=== PATIENT | male | born 1990 | race American Indian/Alaskan Native ===

== ENCOUNTER 2018-02-26 10:59 | Emergency (ER) | payer SELFPAY ==
[2018-02-26 11:15] VITALS: BP 111/71
[2018-02-26] MEDS ORDERED: BENTYL IM ONE (11:42)
[2018-02-26] MEDS ORDERED: ZOFRAN ODT PO ONE (11:42)
[2018-02-26] MEDS ORDERED: TORADOL IM ONE (11:42)
--- NOTE | 2018-02-26 11:53 | Emergency Department Report ---
ED General Adult HPI - General Chief complaint: Abdominal Pain Stated complaint: ABDOMINAL PAIN Time Seen by Provider: 02/26/18 11:40 Source: EMS Mode of arrival: Wheelchair Limitations: No Limitations - History of Present Illness Initial comments: Patient is a 27-year-old -[place] male who has had 2 days of nausea vomiting diarrhea. Patient states that this been present since just last night and through this morning. Patient denies any fever. Patient does state he has some generalized crampy abdominal pain mostly before having the loose stools. Patient denies any fever cough cold congestion at this time. - Related Data Previous Rx's Medication Instructions Recorded Last Taken Type Dicyclomine [Bentyl] 10 mg PO QID #15 capsule 02/26/18 Unknown Rx Diphenoxylate/Atropine [Lomotil] 1 tab PO Q4H PRN #10 tablet 02/26/18 Unknown Rx Ondansetron [Zofran Odt] 4 mg PO Q8HR PRN #10 tab.rapdis 02/26/18 Unknown Rx traMADol [Ultram] 50 mg PO Q6HR PRN #10 tablet 02/26/18 Unknown Rx Allergies Allergy/AdvReac Type Severity Reaction Status Date / Time No Known Allergies Allergy Unverified 02/26/18 11:15 ED Review of Systems ROS: Stated complaint: ABDOMINAL PAIN Other details as noted in HPI Comment: All other systems reviewed and negative ED Past Medical Hx - Past Medical History Hx HIV: Yes (DX 01/15/2018-not on meds) Additional medical history: scoliosis - Surgical History Past Surgical History?: No - Social History Smoking Status: Never Smoker Substance Use Type: Alcohol, Marijuana - Medications Home Medications: Home Medications Medication Instructions Recorded Confirmed Last Taken Type Dicyclomine [Bentyl] 10 mg PO QID #15 capsule 02/26/18 Unknown Rx Diphenoxylate/Atropine [Lomotil] 1 tab PO Q4H PRN #10 tablet 02/26/18 Unknown Rx Ondansetron [Zofran Odt] 4 mg PO Q8HR PRN #10 tab.rapdis 02/26/18 Unknown Rx traMADol [Ultram] 50 mg PO Q6HR PRN #10 tablet 02/26/18 Unknown Rx ED Physical Exam - General Limitations: No Limitations General appearance: alert, in no apparent distress - Head Head exam: Present: atraumatic, normocephalic - Eye Eye exam: Present: normal appearance - ENT ENT exam: Present: mucous membranes moist - Neck Neck exam: Present: normal inspection - Respiratory Respiratory exam: Present: normal lung sounds bilaterally. Absent: respiratory distress, wheezes, rales - Cardiovascular Cardiovascular Exam: Present: regular rate, normal rhythm. Absent: systolic murmur, diastolic murmur, rubs, gallop - GI/Abdominal GI/Abdominal exam: Present: soft, normal bowel sounds. Absent: distended, tenderness, guarding - Rectal Rectal exam: Present: deferred - Extremities Exam Extremities exam: Present: normal inspection - Back Exam Back exam: Present: normal inspection - Neurological Exam Neurological exam: Present: alert, oriented X3 - Psychiatric Psychiatric exam: Present: normal affect, normal mood - Skin Skin exam: Present: warm, dry, intact, normal color. Absent: rash ED Course Vital Signs 02/26/18 11:10 Temperature 98.2 F Pulse Rate 93 H Respiratory 18 Rate Blood Pressure 111/71 O2 Sat by Pulse 97 Oximetry ED Medical Decision Making - Medical Decision Making Patient is a 27-year-old [place] male who's had mild vomiting diarrhea since last night. Patient's vital signs are unremarkable. His abdominal tenderness is minimal. Patient likely has a viral gastroenteritis. There is no rebound tenderness present no localized right sided abdominal pain and no fever do not suspect appendicitis at this time. Patient will be given meds for symptomatic relief will be discharged home. Critical care attestation.: If time is entered above; I have spent that time in minutes in the direct care of this critically ill patient, excluding procedure time. ED Disposition Clinical Impression: Viral gastroenteritis Disposition: DC-01 TO HOME OR SELFCARE Is pt being admited?: No Does the pt Need Aspirin: No Condition: Stable Instructions: Gastroenteritis (ED) Additional Instructions: Please return to the hospital if you develop a fever or your pain localizes to the right lower quadrant Referrals: PRIMARY MD PARESH [Primary Care Provider] - 3-5 Days Time of Disposition: 11:53
== END 2018-02-26 12:12 | disposition home or self-care (01) ==
LOC: ED 10:59
DX: A08.4 Viral intestinal infection, unspecified (principal); F12.10 Cannabis abuse, uncomplicated; Z21 Asymptomatic human immunodeficiency virus [HIV] infection status
CPT/HCPCS: 96372; 99283; J0500; J1885; Q0162

== ENCOUNTER 2018-09-14 13:51 | Emergency (ER) | payer OTHER ==
--- NOTE | 2018-09-14 14:41 | Emergency Department Report ---
Chief Complaint: Chest Pain Stated Complaint: CHEST PAIN/BLOOD IN STOOL Time Seen by Provider: 09/14/18 14:37 - HPI History of Present Illness: pt presents for substernal and left sided CP that began two days ago works at a [employer], does not do any heavy lifting hx of asthma, albuterol inhaler no cough, no wheezing, no SOB no N/V HIV (+), is not on antivirals, diagnosed may 2018 has not seen anyone for it also having blood in the stool denies any hx of hemorrhoids no rectal pain (+) smoker MSE screening note: Focused history and physical exam performed. Due to findings the following was ordered: CXR, labs ED Disposition for MSE Condition: Stable
[2018-09-14 15:02] LABS: Basophils % (Auto) 0.3 % (0.0-1.8); Eosinophils # (Auto) 0.2 K/mm3 (0.0-0.4); Eosinophils % (Auto) 2.6 % (0.0-4.3); Hemoglobin 10.5 gm/dl (11.8-15.2); Lymphocytes # (Auto) 2.7 K/mm3 (1.2-5.4); Lymphocytes % (Auto) 34.7 % (13.4-35.0); Mean Corpuscular HGB Conc 33 % (32-34); Mean Corpuscular Volume 81 fl (84-94); Monocytes # (Auto) 0.7 K/mm3 (0.0-0.8); Monocytes % (Auto) 8.9 % (0.0-7.3); Platelet Count 366 K/mm3 (140-440); Red Blood Count 3.96 M/mm3 (3.65-5.03)
--- NOTE | 2018-09-14 15:57 | XRay Report ---
PROCEDURE: XR CHEST ROUTINE 2V TECHNIQUE: PA and lateral chest radiographs were obtained. HISTORY: CP COMPARISONS: None. FINDINGS: Heart: Normal. Mediastinum/Vessels: Normal. Lungs/Pleural space: No infiltrate, effusion, or pneumothorax. Bony thorax: No acute osseous abnormality. IMPRESSION: No pulmonary infiltrates. This document is electronically signed by Emperatriz Cross MD., September 14 2018 03:55:59 PM ET
--- NOTE | 2018-09-14 19:29 | Emergency Department Report ---
Minor Respiratory - HPI Chief Complaint: Chest Pain Stated Complaint: CHEST PAIN/BLOOD IN STOOL Time Seen by Provider: 09/14/18 14:37 Duration: 3 Days Pain Location: Chest Severity: mild Minor Respiratory: Yes Able to Tolerate Fluids, Yes Chest Pain, No Rhinorrhea, No Sore Throat, No Ear Pain, No Cough, No Sick Contacts, No Hemoptysis, No Shortness of Breath, No Fever Other History: She is a 28-year-old male comes to the ER complaining of left- sided chest pain since Saturday. He denies cough. He states he does have some shortness of breath with wheezing. He has no fever or sputum. Denies any night sweats. He denies any recent weight loss. Patient does have HIV and is not on antivirals. He cannot tell me a good reason why he is not. He does have a history of asthma. ED Review of Systems ROS: Stated complaint: CHEST PAIN/BLOOD IN STOOL Other details as noted in HPI Comment: All other systems reviewed and negative ED Past Medical Hx - Past Medical History Hx Asthma: Yes Hx HIV: Yes (DX 01/15/2018-not on meds) Additional medical history: scoliosis, cellulitis of right knee - Social History Smoking Status: Current Every Day Smoker Substance Use Type: Alcohol, Marijuana Minor Respiratory Exam - Exam General: Vital signs noted. No distress. Alert and acting appropriately. HEENT: Yes Moist Mucous Membranes, No Pharyngeal Erythema, No Pharyngeal Exudates, No Rhinorrhea, No Conjuctival Injection, No Frontal Tenderness, No Maxillary Tenderness Ear: Neither TM Bulge, Neither TM Erythema, Neither EAC Pain, Neither EAC Discharge Neck: Yes Supple, No Adenopathy Lungs: Yes Good Air Exchange, Yes Wheezes, No Ronchi, No Stridor Heart: Yes Regular, No Murmur Abdomen: No Tenderness, No Peritoneal Signs Skin: No Rash, No Edema Neurologic: Alert and oriented, no deficits. Musculoskeletal: Unremarkable. ED Course Vital Signs 09/14/18 14:37 Temperature 98.7 F Pulse Rate 64 Respiratory 16 Rate Blood Pressure 111/69 O2 Sat by Pulse 98 Oximetry ED Medical Decision Making - Lab Data Result diagrams: 09/14/18 14:44 - Radiology Data Radiology results: report reviewed, image reviewed - Medical Decision Making Patient's pain in his chest is associated with coughing and wheezing. As this is shortness of breath. Patient has a history of asthma. He has HIV but is on no antivirals. He has no fever. There is no sputum. No night sweats. No weight loss. X-rays without consolidation. Had a long discussion with the patient and discussed the importance of infectious disease follow-up and consideration for antiviral drugs. Labs 09/14/18 14:44 WBC 7.7 RBC 3.96 Hgb 10.5 L Hct 32.0 L MCV 81 L MCH 26 L MCHC 33 RDW 18.0 H Plt Count 366 Lymph % (Auto) 34.7 [place] % (Auto) 8.9 H Eos % (Auto) 2.6 Baso % (Auto) 0.3 Lymph # 2.7 [place] # 0.7 Eos # 0.2 Baso # 0.0 Seg Neutrophils % 53.5 Seg Neutrophils # 4.1 Vital Signs 09/14/18 09/14/18 14:37 19:00 Temperature 98.7 F 98.6 F Pulse Rate 64 77 Respiratory 16 20 Rate Blood Pressure 111/69 Blood Pressure 122/67 [Left] O2 Sat by Pulse 98 98 Oximetry Patient was medicated in the emergency room and will be DC'd home with follow-up plan of care. Allergies No Known Allergies Allergy (Verified 09/29/18 12:29) Orders 09/14/18 14:42 EKG (12 lead) Stat Comment: Mode Of Transportation: Ambulatory Physician Instructions: Reason For Exam: CP Who will perform the EKG?: ED Order Site: [facility] to do EKG .once Physician Instructions: XR chest routine 2V Stat Is Patient : Mode Of Transportation: Ambulatory Reason For Exam: CP Order Site: [facility] Order Site:: [facility] Order Site:: [facility] 09/14/18 14:44 Complete Blood Count Auto Diff Stat Comment: Department: [facility] Specimen: Send someone from the department to collect Vital Signs Temp Pulse Resp BP BP Pulse Ox 09/14/18 19:00 98.6 F 77 20 122/67 98 09/14/18 14:37 98.7 F 64 16 111/69 98 Laboratory Results 09/14/18 Range/Units 14:44 WBC 7.7 (4.5-11.0) K/mm3 RBC 3.96 (3.65-5.03) M/mm3 Hgb 10.5 L (11.8-15.2) gm/dl Hct 32.0 L (35.5-45.6) % MCV 81 L (84-94) fl MCH 26 L (28-32) pg MCHC 33 (32-34) % RDW 18.0 H (13.2-15.2) % Plt Count 366 (140-440) K/mm3 Lymph % (Auto) 34.7 (13.4-35.0) % [place] % (Auto) 8.9 H (0.0-7.3) % Eos % (Auto) 2.6 (0.0-4.3) % Baso % (Auto) 0.3 (0.0-1.8) % Lymph # 2.7 (1.2-5.4) K/mm3 [place] # 0.7 (0.0-0.8) K/mm3 Eos # 0.2 (0.0-0.4) K/mm3 Baso # 0.0 (0.0-0.1) K/mm3 Seg Neutrophils % 53.5 (40.0-70.0) % Seg Neutrophils # 4.1 (1.8-7.7) K/mm3 Assessments/Treatments ED Charge sheet Start: 09/14/18 13:55 Freq: Status: Discharge Protocol: Document 09/14/18 13:51 RT (Rec: 09/20/18 02:09 RT [id number]) Registration time ED Arrival Date and Time 09/14/18 13:51 ED Charge Sheet ED Arrival mode Arrival Mode - Auto Self Info provided by: Info provided by Patient Triage Procedures Done Pain Scale,Triage Vitals/Pulse Ox Taken ED Level of Consciousness and Vital Level of Consciousness Signs Recorded Tests done Lab Test (any) - Ordered,X-Ray Plain Films - Order, Venipuncture ED Insurance Associate Charge EKG by ED Staff ED Disposition Charges Discharge Assessment Recorded, Discharged from ED,Disposition Pain Assessed Total Points 91 ED E&M Level ED Level IV Charge w/ Pro ED Discharge Assessment Start: 09/14/18 13:52 Freq: Status: Discharge Protocol: Document 09/14/18 22:13 JOI (Rec: 09/14/18 22:13 JOI E [id number]) Discharge Assessment Did this pt recieve Moderate Sedation No Written Discharge Instructions Provided Yes Verbal instructions given Yes Discharge Instructions Given To: Patient IV Discontinued Prior to DC Not Applicable Mode of Discharge Ambulated Environmental Services Director present? (for medicated pts) Yes Severity scale (0 -10) 0 ED Past Medical History Start: 09/14/18 13:52 Freq: Status: Discharge Protocol: Document 09/14/18 13:54 SHOLT (Rec: 09/14/18 13:55 SHOLT [id number]) ED Past Medical History Hx Asthma Yes Hx HIV Yes: DX 01/15/2018-not on meds Additional medical history scoliosis, cellulitis of right knee ED Quick Triage Start: 09/14/18 13:52 Freq: Status: Discharge Protocol: Document 09/14/18 13:54 SHOLT (Rec: 09/14/18 13:55 SHOLT [id number]) ED Quick Triage Mode of arrival Ambulatory Pt arrived by: Self/Family Source of Info patient Limitations No Limitations Description of Symptoms Left chest pain since Saturday night. Denies cough. States SOB. Type of Emergency Medical Acuity Level 3 - Urgent Chief Complaint Chest Pain Assign to Area FT ED Secondary Triage Start: 09/14/18 13:52 Freq: Status: Discharge Protocol: Document 09/14/18 14:37 POLLY (Rec: 09/14/18 14:39 POLLY [id number]) ED Screening Assessment Pain Scale 8 Pain Scale Used 0-10 Score Pain Description Tightness,Aching Height 5 ft 9 in Weight 57.153 kg Temperature (97.6 F-99.6 F) 98.7 F Temperature Source Oral Pulse Rate (60-90) 64 Blood Pressure 111/69 BP type of cuff Automatic BP cuff Respiratory Rate (12-24) 16 O2 Sat by Pulse Oximetry (84-100) 98 Recent Fever No Suspicion of Infection No General Appearance WNL Alert and oriented x3 (person, place,time),Resp. even & non- labored,Skin warm, dry, color WNL Fall Risk None Fall protocol initiated No Today's problem changes your ability to No care for yourself? ADL level Independent Mobility Level Ambulatory Patient lives with: Family Any Objection to Receiving Blood/Blood No Products? Primary Language SAMI Smoking Status Current Every Day Smoker Substance Use Type Alcohol,Marijuana Tetanus Last Received Not sure when last received Did you receive childhood immunizations? Yes Have you traveled outside the [place] in the No last 30 days? Have you been around anyone ill who has No traveled outside the [place] within the last 30 days? Treatments done in Triage Triage orders initiated ED Vital Signs Start: 09/14/18 13:52 Freq: Q2H Status: Discharge Protocol: Document 09/14/18 19:00 ARTEMIOÁNGELA (Rec: 09/14/18 22:13 TYÁNGELA [id number]) Vitals/Sepsis Vitals for Shift Protocol Yes Temperature (97.6 F-99.6 F) 98.6 F Temperature Source Oral Pulse Rate (60-90) 77 Left Blood Pressure 122/67 Blood Pressure Mean (mm Hg) 85 BP type of cuff Automatic BP cuff Respiratory Rate (12-24) 20 O2 Sat % (84-100) 98 Oxygen Delivery Method Room Air Severity scale (0 -10) 0 Pain Scale Level 0-10 Score Sepsis Result Low Risk for Sepsis WBC - Last Result 7.7 K/mm3 (4.5-11.0) Tech to do EKG Start: 09/14/18 14:42 Freq: .once Status: Discharge Protocol: Document 09/14/18 14:49 SVETLANA (Rec: 09/14/18 14:49 SVETLANA [id number]) EKG Time EKG Time 14:00 Discharge Information ED Provider: KASSANDRA MEJIA Status: Discharged Time Seen by Provider: 09/14/18 14:37 Condition: Stable Triaged At: 09/14/18 13:54 Emergency Discharge Date/Time: 09/14/18 19:30 Emergency Discharge Disposition: DC-01 TO HOME OR SELFCARE Clinical Impression Non-cardiac chest pain Anemia Emergency Discharge Comment: Discharge Intervention Last Done ED Vital Signs 09/14/18 19:00 Query Result Vitals for Shift Protocol Yes Temperature 98.6 F Temperature Source Oral Pulse Rate 77 Left -Blood Pressure 122/67 -Blood Pressure Mean 85 -BP type of cuff Automatic BP cuff Respiratory Rate 20 O2 Sat by Pulse Oximetry 98 Oxygen Delivery Method Room Air Severity scale (0 -10) 0 Pain Scale Used 0-10 Score Sepsis Result Low Risk for Sepsis WBC - Last Result 7.7 K/mm3 (4.5-11.0) ED Discharge Assessment 09/14/18 22:13 Query Result Did this pt recieve Moderate Sedation No Discharge Instructions Requested Yes Patient Education Given Yes Discharge Instructions Given To: Patient IV Discontinued Prior to DC Not Applicable Mode of Discharge Ambulated Environmental Services Director present? (for medicated pts) Yes Severity scale (0 -10) 0 Instructions: Costochondritis (ED) Stand-Alone Forms: Prescriptions: Visit Report - Forms: - Referrals: RAMIN MATAMOROS (Primary Care Provider) - 3-5 Days KEYLA MAK MD (Staff Physician) - 3-5 Days PAULA NORIEGA MD (Staff Physician) - 3-5 Days ROYCE DOWD MD (Staff Physician) - 3-5 Days KENISHA HER MD (Staff Physician) - 3-5 Days ED Audit Last Name: OSMAR Status: Discharged First Name: CHUCKIE Priority: 3 - Urgent Middle: DESJUAN Condition: Stable Birthdate: 1990 Arrival Date/Time: 09/14/18 13:51 Age: 28 Arrival Mode: CAR/PERSONAL TRANSPORT Sex: M Triaged At: 09/14/18 13:54 Language: Time Seen by Provider: 09/14/18 14:37 Stated Complaint: CHEST PAIN/BLOOD IN STOOL Chief Complaint: Chest Pain ED Location: [facility] Area: Station: Group: ED Provider: KASSANDRA MEJIA ED Midlevel Provider: ANNIE SHEPPARD ED Nurse: Primary Care Provider: Status/Phase DtTm/Value User/Action Ready for Discharge 09/14/18 19:30:26 ANNIE SHEPPARD Ed Provider Kassandra Silva MD Edit 09/14/18 19:29:30 ANNIE SHEPPARD Referrals (Provider) KENISHA HER MD Added Referrals (Provider) ROYCE DOWD MD Added Referrals (Provider) PAULA NORIEGA MD Added Referrals (Provider) KEYLA MAK MD Added 09/14/18 19:28:42 ANNIE SHEPPARD Referrals (Other) [facility] Added With GINGER 09/14/18 19:00:37 ANNIE SHEPPARD Midlevel Provider ANNIE SHEPPARD New In Room 09/14/18 16:55:31 KEYLA SERRATO Primary Care Provider ?? Unknown Provider: [facility] ?? New 09/14/18 16:19:13 SARAH LINO Midlevel Provider CHRIS YANES Deleted With GINGER 09/14/18 14:37:24 SARAH LINO Midlevel Provider CHRIS YANES New Received 09/14/18 13:55 PATRICIO SAMANIEGO Chief Complaint Chest Pain New 09/14/18 13:51:03 MAIKEL ENAMORADO Ed Provider ED DOC, New Stated Complaint CHEST PAIN/BLOOD IN STOOL New Critical care attestation.: If time is entered above; I have spent that time in minutes in the direct care of this critically ill patient, excluding procedure time. ED Disposition Clinical Impression: Non-cardiac chest pain, Anemia, Asthma Disposition: TO HOME OR SELFCARE Is pt being admited?: No Does the pt Need Aspirin: No Condition: Stable Instructions: Costochondritis (ED), Asthma (ED) Additional Instructions: DIET TOLERATED MEDS ORDERED TODAY IN ER FOLLOW INSTRUCTIONS ON THE BOTTLE FOLLOW UP PCP WITHIN 48 HOURS TO ENSURE YOU ARE GETTING BETTER ACTIVITY TOLERATED MOTRIN OR TYLENOL FOR PAIN OR FEVER RETURN TO THE ER FOR WORSENING SYMPTOMS NOT RELIEVED BY YOUR MEDICATIONS. Referrals: [facility] [Other] - 3-5 Days PAULA NORIEGA MD [Staff Physician] - 3-5 Days KEYLA MAK MD [Staff Physician] - 3-5 Days ROYCE DOWD MD [Staff Physician] - 3-5 Days KENISHA HER MD [Staff Physician] - 3-5 Days Time of Disposition: 19:29
[2018-09-16 17:57] VITALS: BP 122/67
== END 2018-09-14 19:30 | disposition home or self-care (01) ==
LOC: ED 13:51
DX: R07.89 Other chest pain (principal); K92.1 Melena; D64.9 Anemia, unspecified; J45.909 Unspecified asthma, uncomplicated; F17.200 Nicotine dependence, unspecified, uncomplicated; F12.10 Cannabis abuse, uncomplicated
CPT/HCPCS: 36415; 71046; 85025; 93005; 93010

== ENCOUNTER 2018-09-29 12:27 | Emergency (ER) | payer SELFPAY ==
--- NOTE | 2018-09-29 12:56 | Emergency Department Report ---
Chief Complaint: Neuro Symptoms/Deficit Stated Complaint: FACIAL NUMBNESS Time Seen by Provider: 09/29/18 12:51 - HPI History of Present Illness: pt states he has numbness on the right side of the face that began yesterday numbness on the right of the tongue no OCHOA, no LE/UE weakness, or numbness, no vision changes unable to lift right eyebrow, mild right sided facial droop PMHx HIV MSE screening note: Focused history and physical exam performed. Due to findings the following was ordered: Ct head ED Disposition for MSE Condition: Stable
[2018-09-29 13:00] VITALS: BP 120/69
--- NOTE | 2018-09-29 14:05 | Cat Scan Report ---
PROCEDURE: CT HEAD/BRAIN WO CON TECHNIQUE: A noncontrast CT of the head was performed. HISTORY: right sided facial numbness COMPARISON: None FINDINGS: There is no acute intracranial hemorrhage. There is no brain edema, mass effect or midline shift. Ventricular size is appropriate for brain volume. There is no abnormal extra-axial fluid collections. There is no skull fracture seen. The visualized paranasal sinuses are clear. IMPRESSION: There is no acute intracranial abnormality seen. This document is electronically signed by Teagan Duncan MD., September 29 2018 02:03:38 PM ET
--- NOTE | 2018-09-29 16:47 | Emergency Department Report ---
ED General Adult HPI - General Chief complaint: Neuro Symptoms/Deficit Stated complaint: FACIAL NUMBNESS Time Seen by Provider: 09/29/18 12:51 Source: patient Mode of arrival: Ambulatory Limitations: No Limitations - History of Present Illness Initial comments: This is a 28-year-old -[place] male who presents to the emergency room with right sided facial numbness since last night. Past medical history of HIV. Patient reports symptoms started with his lips originally yesterday and when he woke up this morning he couldn't raise his right eyebrow. He also complains of increasing numbness to right side of face. Denies weakness or slurred speech. Onset/Timin -: days(s) Location: face Radiation: non-radiation Severity scale (0 -10): 0 Consistency: constant Improves with: none Worsens with: movement Associated Symptoms: denies other symptoms Treatments Prior to Arrival: none - Related Data Previous Rx's Medication Instructions Recorded Last Taken Type Acetaminophen [Acetaminophen TAB] 325 mg PO Q4H PRN #15 tablet 04/28/18 Unknown Rx oxyCODONE /ACETAMINOPHEN [Percocet 1 tab PO Q6H PRN #15 tablet 04/28/18 Unknown Rx 5/325 mg] Mineral Oil/Petrolatum,White 3.5 gm OP Q2H #1 oint...g. 09/29/18 Unknown Rx [Artificial Tears Eye Ointment] Prednisone [predniSONE 10 mg 10 mg PO .TAPER #1 tab.ds.pk 09/29/18 Unknown Rx (6-Day Pack, 21 Tabs)] Allergies Allergy/AdvReac Type Severity Reaction Status Date / Time No Known Allergies Allergy Verified 09/29/18 12:29 ED Review of Systems ROS: Stated complaint: FACIAL NUMBNESS Other details as noted in HPI Constitutional: denies: chills, fever Eyes: eye pain (right). denies: eye discharge, vision change ENT: denies: ear pain, throat pain Respiratory: denies: cough, shortness of breath, wheezing Cardiovascular: denies: chest pain, palpitations Gastrointestinal: denies: abdominal pain, nausea, diarrhea Genitourinary: denies: urgency, dysuria Musculoskeletal: denies: back pain, joint swelling, arthralgia Skin: denies: rash, lesions Neurological: paresthesias (right-sided facial). denies: headache, weakness Psychiatric: denies: anxiety, depression ED Past Medical Hx - Past Medical History Hx Asthma: Yes Hx HIV: Yes Additional medical history: scoliosis, cellulitis of right knee - Social History Smoking Status: Unknown if ever smoked Substance Use Type: None - Medications Home Medications: Home Medications Medication Instructions Recorded Confirmed Last Taken Type Acetaminophen [Acetaminophen TAB] 325 mg PO Q4H PRN #15 tablet 04/28/18 Unknown Rx oxyCODONE /ACETAMINOPHEN [Percocet 1 tab PO Q6H PRN #15 tablet 04/28/18 Unknown Rx 5/325 mg] Mineral Oil/Petrolatum,White 3.5 gm OP Q2H #1 oint...g. 09/29/18 Unknown Rx [Artificial Tears Eye Ointment] Prednisone [predniSONE 10 mg 10 mg PO .TAPER #1 tab.ds.pk 09/29/18 Unknown Rx (6-Day Pack, 21 Tabs)] ED Physical Exam - General Limitations: No Limitations General appearance: alert, in no apparent distress - Eye Eye exam: Present: PERRL, EOMI. Absent: scleral icterus, conjunctival injection, nystagmus, periorbital swelling, periorbital tenderness - ENT ENT exam: Present: mucous membranes moist - Respiratory Respiratory exam: Present: normal lung sounds bilaterally. Absent: respiratory distress - Cardiovascular Cardiovascular Exam: Present: regular rate, normal rhythm. Absent: systolic murmur, diastolic murmur, rubs, gallop - GI/Abdominal GI/Abdominal exam: Present: soft, normal bowel sounds - Neurological Exam Neurological exam: Present: alert, oriented X3 - Expanded Neurological Exam Expanded Patient oriented to: Present: person, place, time Speech: Present: fluid speech Cranial nerves: EOM's Intact: Normal, Gag Reflex: Normal, Tongue Deviation: Normal, Nystagmus: Normal, Facial Sensation: Abnormal Right, Normal, Facial Palsy with Forehead Movement: Abnormal Right, Facial Palsy without Forehead Movement: Abnormal Right Cerebellar function: Finger to Nose: Normal Upper motor neuron: Iftikhar Neglect: Normal, Pronator Drift: Normal Sensory exam: Upper Extremity Light Touch: Normal, Upper Extremity Pin Prick: Normal, Upper Extremity Temperature: Normal, UE 2 Point Discrimination: Normal Motor strength exam: RUE: 5, LUE: 5 Best Eye Response ([place]): (4) open spontaneously Best Motor Response ([place]): (6) obeys commands Best Verbal Response ([place]): (5) oriented [place] Total: 15 - Psychiatric Psychiatric exam: Present: normal affect, normal mood - Skin Skin exam: Present: warm, dry, intact, normal color. Absent: rash ED Course Vital Signs 09/29/18 12:49 Temperature 98.3 F Pulse Rate 74 Respiratory 18 Rate Blood Pressure 120/69 O2 Sat by Pulse 100 Oximetry ED Medical Decision Making - Radiology Data Radiology results: report reviewed PROCEDURE: CT HEAD/BRAIN WO CON TECHNIQUE: A noncontrast CT of the head was performed. HISTORY: right sided facial numbness COMPARISON: None FINDINGS: There is no acute intracranial hemorrhage. There is no brain edema, mass effect or midline shift. Ventricular size is appropriate for brain volume. There is no abnormal extra-axial fluid collections. There is no skull fracture seen. The visualized paranasal sinuses are clear. IMPRESSION: There is no acute intracranial abnormality seen. - Medical Decision Making Patient was examined by me. Vitals are normal and patient is in no acute distress. Obtained a CT of his head. CT dictated by radiologist and no acute findings. Patient has right-sided facial palsy which is susceptible of Guevara palsy. Patient informed of results. Start prednisone taper and artificial tears. Plan discussed with patient to discharge home and treat outpatient. He agrees with ER plan. Referral to catch basin cleaner for continued care. Patient discharged home in stable condition. Follow up with PCP in 2-3 days. Critical care attestation.: If time is entered above; I have spent that time in minutes in the direct care of this critically ill patient, excluding procedure time. 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 The eye should be kept moist with drops and/or artificial tear ointment. The eyelid should be taped closed at night, and a protective shield (e.g., glasses or sunglasses) should be worn while awake. Follow up with ophthalmology from the referrals list below. Prescriptions: Mineral Oil/Petrolatum,White [Artificial Tears Eye Ointment] 3.5 gm OP Q2H #1 oint...g. Prednisone [predniSONE 10 mg (6-Day Pack, 21 Tabs)] 10 mg PO .TAPER #1 tab.ds.pk Referrals: [facility] [Primary Care Provider] - 3-5 Days JOSIAH CLEANING MD [Staff Physician] - 3-5 Days [facility] [Provider Group] - 3-5 Days Time of Disposition: 16:49
== END 2018-09-29 17:01 | disposition home or self-care (01) ==
LOC: ED 12:27
DX: G51.0 Bell's palsy (principal); J45.909 Unspecified asthma, uncomplicated; B20 Human immunodeficiency virus [HIV] disease
CPT/HCPCS: 70450

== ENCOUNTER 2020-06-18 07:47 | Emergency (ER) | payer OTHER ==
[2020-06-18 07:56] VITALS: BP 140/74
[2020-06-18] MEDS ORDERED: IPRATROPIUM/ALBUTEROL SULFATE 3 ML AMPUL.NEB IH ONE (08:11)
--- NOTE | 2020-06-18 08:15 | Event Note ---
ED Screening Note Date of service: 06/18/20 Time: 08:14 ED Screening Note: This initial assessment/diagnostic orders/clinical plan/treatment(s) is/are subject to change based on patients health status, clinical progression and re- assessment by fellow clinical providers in the ED. Further treatment and workup at subsequent clinical providers discretion. Patient/guardian urged not to elope from the ED as their condition may be serious if not clinically assessed and managed. Initial orders include: 29-year-old male with a past medical history of asthma HIV positive is complaining of 1 week of feeling short of breath he uses his inhaler but does not get any better he has a dry nonproductive cough. Denies any fever or any URI symptoms. He smokes cigarettes occasionally.
--- NOTE | 2020-06-18 08:40 | XRay Report ---
CHEST PA AND LATERAL VIEWS INDICATION: SOB. COMPARISON: None. FINDINGS: Support devices: None. Heart: Within normal limits. Lungs/Pleura: No acute pulmonary or pleural findings. IMPRESSION: 1. No acute findings. Signer Name: Bryn Wright MD Signed: 06/18/2020 8:36 AM Workstation Name: [id number][id number]
[2020-06-18] MEDS: ALBUTEROL 2.5 MG/3 ML NEBU IH ONE (09:33)
[2020-06-18] MEDS ORDERED: DEXAMETHASONE 4 MG TAB PO ONE (10:37)
--- NOTE | 2020-06-18 10:42 | Emergency Department Report ---
HPI - General Chief Complaint: Dyspnea/Respdistress Time Seen by Provider: 06/18/20 10:31 - HPI HPI: This is a 29-year-old -[place]onegas[place] male who presents to the emergency department with a complaint of some shortness of breath, wheezing, and a dry cou gh that has been going on intermittently over the past week, but worsened starting this morning. The patient says that he woke up feeling like his chest was tight with increased shortness of breath. He has a past medical history of asthma and HIV. He was using his albuterol inhaler throughout the morning without much relief. The patient had a DuoNeb breathing treatment done through triage and at the time of my examination the patient says he is feeling greatly improved. He denies any fever, lower extremity swelling, nausea, vomiting or diaphoresis. No recent travel or sick contacts at home. No known exposure and with COVID-19. He is an occasional tobacco smoker. ED Past Medical Hx - Past Medical History Previous Medical History?: Yes Hx Asthma: Yes Hx HIV: Yes Additional medical history: scoliosis, cellulitis of right knee - Surgical History Past Surgical History?: No - Social History Smoking Status: Current Every Day Smoker Substance Use Type: None - Medications Home Medications: Home Medications Medication Instructions Recorded Confirmed Last Taken Type ALBUTEROL NEB's [Proventil 0.083% 2.5 mg IH TID PRN #1 box 06/18/20 Unknown Rx NEBS] ED Review of Systems ROS: Stated complaint: DIFFICULTY BREATHING Other details as noted in HPI Comment: All other systems reviewed and negative Constitutional: denies: chills, fever Eyes: denies: eye pain, vision change ENT: denies: ear pain, throat pain Respiratory: cough, shortness of breath, wheezing Cardiovascular: denies: palpitations, edema Gastrointestinal: denies: abdominal pain, vomiting Genitourinary: denies: dysuria, discharge Musculoskeletal: denies: back pain, arthralgia Skin: denies: rash, lesions Neurological: denies: headache, weakness Physical Exam - Physical Exam Vital Signs: Vital Signs 06/18/20 06/18/20 07:55 10:14 Temperature 97.9 F Pulse Rate 90 Pulse Rate [ 94 H Posterior Bilateral Throughout] Respiratory 22 Rate Respiratory 20 Rate [Posterior Bilateral Throughout] Blood Pressure 140/74 O2 Sat by Pulse 98 Oximetry Physical Exam: GENERAL: The patient is well-developed well-nourished. HENT: Normocephalic. Atraumatic. Patient has moist mucous membranes. EYES: Extraocular motions are intact. NECK: Supple. Trachea is midline. CHEST/LUNGS: Mild expiratory wheezing. No tachypnea or accessory muscle use. There is no respiratory distress noted. HEART/CARDIOVASCULAR: Regular. There is no tachycardia. There is no murmur. ABDOMEN: Abdomen is soft, nontender. Patient has normal bowel sounds. SKIN: Skin is warm and dry. NEURO: The patient is awake, alert, and oriented. The patient is cooperative. The patient has no focal neurologic deficits. Normal speech. MUSCULOSKELETAL: There is no tenderness or deformity. There is no limitation range of motion. ED Course Vital Signs 06/18/20 06/18/20 07:55 10:14 Temperature 97.9 F Pulse Rate 90 Pulse Rate [ 94 H Posterior Bilateral Throughout] Respiratory 22 Rate Respiratory 20 Rate [Posterior Bilateral Throughout] Blood Pressure 140/74 O2 Sat by Pulse 98 Oximetry ED Medical Decision Making - EKG Data -: EKG Interpreted by Me EKG shows normal: sinus rhythm (PVCs), axis, intervals, QRS complexes, ST-T waves Rate: bradycardia (58 bpm) - EKG Data When compared to previous EKG there are: previous EKG unavailable Interpretation: other (Sinus rhythm at 58 bpm, PACs, normal axis, normal inte rvals. No ST elevation [place].) - Radiology Data Radiology results: image reviewed interpreted by me: Chest x-ray does not show any acute process. There are no pleural effusions, obvious pneumonia and there is no pneumothorax. No significant cardiomegaly. - Medical Decision Making This patient presents to the emergency department with complaint of some shortness of breath, wheezing, coughing that has been going on intermittently over the past week but worsened this morning. The patient does have a history of asthma and intermittently uses tobacco products. On examination he has some mild expiratory wheezing but otherwise there is no tachypnea, accessory muscle use, or signs of any acute or respiratory distress. Chest x-ray does not show any pneumonia, pleural effusions, pneumothorax, focal consolidation, or any other acute process. An EKG was performed that does not show any morphology consistent with ST elevation myocardial infarction or any dysrhythmia. The patient had a breathing treatment through triage and at the time of my examination says that he is feeling greatly improved. He was given a dose of Decadron. His vital signs have been reassuring throughout his ED course including being afebrile. He appears safe for discharge home at this time. He has been instructed to follow-up with primary care, has been given a prescription for albuterol nebulized solution. He will return to the emergency department with any worsening of his symptoms or with any acute distress. Critical Care Time: No Critical care attestation.: If time is entered above; I have spent that time in minutes in the direct care of this critically ill patient, excluding procedure time. ED Disposition Clinical Impression: Bronchospasm Asthma exacerbation Qualifiers: Asthma severity: unspecified severity Asthma persistence: unspecified Qualified Code(s): J45.901 - Unspecified asthma with (acute) exacerbation Disposition: TO HOME OR SELFCARE Is pt being admited?: No Condition: Stable Instructions: Asthma, Adult, Bronchospasm, Adult Additional Instructions: Please follow-up with a primary care physician in the next few days. Please avoid any tobacco use. Return to the emergency department with any worsening of your symptoms, new or concerning symptoms not addressed during this current emergency department visit, or with any acute distress. Prescriptions: ALBUTEROL NEB's [Proventil 0.083% NEBS] 2.5 mg IH TID PRN #1 box PRN Reason: Wheezing Referrals: PRIMARY CARE, [Primary Care Provider] - 2-3 Days [facility] [Provider Group] - 2-3 Days Time of Disposition: 11:33
== END 2020-06-18 11:45 | disposition home or self-care (01) ==
LOC: ED 07:47
DX: J45.901 Unspecified asthma with (acute) exacerbation (principal); F17.200 Nicotine dependence, unspecified, uncomplicated; Z79.899 Other long term (current) drug therapy; Z21 Asymptomatic human immunodeficiency virus [HIV] infection status
CPT/HCPCS: 71046; 93005; 94640; 99283; J8540; 94644